=== PATIENT | female | born 1965 | race Caucasian/White ===

== ENCOUNTER → 2018-03-29 | Outpatient (CLI) | payer BC ==
[~2018-03-29] MED LIST: Motion Sickness25 M1 PO; OMEP20ER PO; Provera10 MG PO
== END ==
LOC: LAB EV 14:46 → LAB SHORT 14:46
DX: R22.40 Localized swelling, mass and lump, unspecified lower limb (principal)
CPT/HCPCS: 85379

== ENCOUNTER → 2019-03-06 | Outpatient (CLI) | payer BC ==
[~2019-03-06] MED LIST changes: +ADVIL LIQUI-GE200 MG PO; +BAYER BACK & B1 EACH PO; +Fergon240 M1 PO; +Fluocinonide15 GM; +LOSA50 PO; +MONT10T PO; +NEXIUM 24HR20 M1 PO; +Nexium40 MG PO; +Prilosec Otc20 MG PO
[2019-03-07 10:27] LABS: Stool Occult Bld Immuno 1 Positive (NEGATIVE); Stool Occult Bld Immuno 2 Positive (NEGATIVE)
== END ==
LOC: LAB 15:42 → LAB SHORT 15:42 → LAB FUT 02-29 13:25
PROVIDERS: Internal Medicine Gastroenterology
DX: D50.9 Iron deficiency anemia, unspecified (principal)
CPT/HCPCS: 82274

== ENCOUNTER 2019-03-20 08:22 | Day surgery (SDC) | payer BC ==
[~2019-03-20] VITALS: Ht 167.6 cm; Wt 111.3 kg
[~2019-03-20 08:22] MED LIST changes: -MONT10T PO; -NEXIUM 24HR20 M1 PO; -Nexium40 MG PO
[2019-03-20 21:45] LABS: Hematocrit 41.6 % (33.0-51.0); Hemoglobin 13.2 g/dL (11.5-16.0)
[2019-05-17] MEDS ORDERED: LOSA50 PO (10:12)
[2019-05-17] MEDS ORDERED: NEXIUM 24HR20 M1 PO (10:13)
[2019-05-17] MEDS ORDERED: Nexium40 MG PO (10:13)
[2019-05-17] MEDS ORDERED: MONT10T PO (10:13)
== END 2019-03-20 12:00 | disposition home or self-care (01) ==
LOC: ORSCSDS 08:22
PROVIDERS: Internal Medicine Gastroenterology
PROC: 0DB58ZX Excision of Esophagus, Via Natural or Artificial Opening Endoscopic, Diagnostic (ICD-10-PCS; principal; 2019-03-20 09:45)
PROC: 0DB98ZX Excision of Duodenum, Via Natural or Artificial Opening Endoscopic, Diagnostic (ICD-10-PCS; principal; 2019-03-20 09:45)
PROC: 0D558ZZ Destruction of Esophagus, Via Natural or Artificial Opening Endoscopic (ICD-10-PCS; principal; 2019-03-20 09:45)
PROC: 0DJD8ZZ Inspection of Lower Intestinal Tract, Via Natural or Artificial Opening Endoscopic (ICD-10-PCS; 2019-03-20 09:45)
DX: D50.9 Iron deficiency anemia, unspecified (principal); K44.9 Diaphragmatic hernia without obstruction or gangrene; R19.5 Other fecal abnormalities; K57.30 Diverticulosis of large intestine without perforation or abscess without bleeding; K21.9 Gastro-esophageal reflux disease without esophagitis; I10 Essential (primary) hypertension; E66.01 Morbid (severe) obesity due to excess calories; Z68.41 Body mass index [BMI] 40.0-44.9, adult; Z87.891 Personal history of nicotine dependence; Z79.899 Other long term (current) drug therapy
CPT/HCPCS: 36415; 85014; 85018; 88305; J2405; J2704; J7120